=== PATIENT | female | born 1990 | race Caucasian/White ===

== ENCOUNTER → 2017-11-08 11:57 | Outpatient (CLI) | payer BC, SELFPAY ==
[2017-11-08 13:48] LABS: Color, Urine Yellow (Yellow); Glucose, Dipstick Normal (Normal); Ketone-Dipstick Negative (Negative); Leukocyte Esterase-Dipstick Negative /ul (Negative); Nitrite-Dipstick Negative (Negative); Occult Blood-Urine Negative /ul (Negative); Protein-Dipstick Negative (Negative); Urine Bilirubin Dipstick Negative (Negative); Urine Clarity Clear (Clear); Urine Urobilinogen Normal (Normal)
[2017-11-08 13:59] LABS: Absolute Lymphocyte Count 2.25 X10^3/ul (0.83-4.51); Absolute Neutrophil Count 7.9 X10^3/uL (2.0-7.7); Basophil# 0.05 X10^3/uL; Basophil% 0.5 % (0-1); Eosinophil# 0.05 X10^3/uL; Eosinophils% 0.5 % (0-5); Hematocrit 42.8 % (37-47); Hemoglobin 14.6 g/dl (12.0-15.0); Lymphocyte # 2.25 X10^3/ul (4.0); Lymphocyte % 20.8 % (19-41); Mean Corp Hgb Conc 34.1 g/gl (32-36); Mean Corpuscular Hgb 29.8 pg (27.0-32.0); Mean Corpuscular Volume 87.3 fL (81-99); Mean Platelet Vol. 10.7 fl (6.2-12.0); Monocyte# 0.59 X10^3/uL; Monocyte% 5.4 % (0-10); Neutrophil # 7.86 X10^3/uL (2.7-7.7); Neutrophil % 72.5 % (47-70); Platelet Count 435 K/mm3 (150-450); RBC Distribution Width CV 13.4 % (11.6-14.6); RBC Distribution Width SD 42.3 fl (35.1-43.9); White Blood Count 10.8 K/mm3 (4.4-11.0)
[2017-11-08 14:03] LABS: POSITIVE COUNT NO; POSITIVE DIFFERENTIAL NO; POSITIVE MORPHOLOGY NO
[2017-11-08 14:15] LABS: Thyroid Stim Hormone (TSH) 1.56 uIU/mL (0.358-3.74)
[2017-11-08 14:57] LABS: HIV - WCH Non-Reactive (Nonreactive); Rubella IgG 104.7 IU/mL
[2017-11-10 03:56] LABS: Prenatal RPR NONREACTIVE (NONREACTIVE)
[2017-11-10 11:54] LABS: HEPATITIS B SURFACE AG Negative (Negative); Hep C Antibodies <0.1 s/co ratio (0.0-0.9)
== END ==
PROVIDERS: Visit Provider Obstetrics & Gynecology
DX: Z34.81 Encounter for supervision of other normal pregnancy, first trimester (principal); Z3A.00 Weeks of gestation of pregnancy not specified
CPT/HCPCS: 36415; 81002; 84443; 85025; 86703; 86762; 86803; 87340

== ENCOUNTER → 2018-03-26 10:14 | Outpatient (CLI) | payer BC, SELFPAY ==
[2018-03-26 12:08] LABS: Hematocrit 37.2 % (37-47); Hemoglobin 12.4 g/dl (12.0-15.0); Mean Corp Hgb Conc 33.3 g/gl (32-36); Mean Corpuscular Hgb 30.3 pg (27.0-32.0); Mean Platelet Vol. 10.7 fl (6.2-12.0); Platelet Count 226 K/mm3 (150-450); RBC Distribution Width CV 14.3 % (11.6-14.6); RBC Distribution Width SD 46.9 fl (35.1-43.9); Red Blood Count 4.09 M/mm3 (4.2-5.4); White Blood Count 12.2 K/mm3 (4.4-11.0)
[2018-03-26 12:09] LABS: Glucose Challenge Gest 1H 50g 119 mg/dL (70-140)
[2018-03-26 12:10] LABS: Scan Indicated on CBC? Y/N NO
== END ==
PROVIDERS: Visit Provider Obstetrics & Gynecology
DX: Z34.83 Encounter for supervision of other normal pregnancy, third trimester (principal)
CPT/HCPCS: 36415; 82950; 85027

== ENCOUNTER → 2018-05-21 13:47 | Outpatient (CLI) | payer BC, SELFPAY ==
[2018-05-21 17:38] LABS: Group B Strep DNA By PCR Negative (Negative); Internal Control PASS; Specimen Processing Control PASS
[2018-05-21 17:39] LABS: Probe Check PASS
== END ==
PROVIDERS: Visit Provider Obstetrics & Gynecology
DX: Z36.85 Encounter for antenatal screening for Streptococcus B (principal)
CPT/HCPCS: 87081; 87653

== ENCOUNTER 2018-06-05 19:27 | Outpatient (CLI) | payer BC, SELFPAY ==
[2018-06-05 20:03] VITALS: BMI 32.3
--- NOTE | 2018-06-06 06:09 | OB.TRI.NOTE ---
History of Present Illness Date of Service: 06/05/18 Was patient seen by the physician?: No Reason For Visit: R/O LABOR Date of Service: 06/05/18 Final ROD: 06/16/18 Gestational age: 38 Weeks and 3 Days History of Present Illness: 27 yo female. Here for labor check. Also dec FM. Not uncomfortable. BPs 158/84 (states nervous) then 139/87 and 140/85 Allergies No Known Allergies Allergy (Verified 06/05/18 20:03) Physical Exam Cervix Dilation (cm): 0 Station: -3 - posterior NST - FHR Rate Baby A Baseline: 110-120 avg variability Accels Variability:: Moderate Accelerations:: 15 x 15 Decelerations:: None NST Reactive:: Yes, Appropriate for gestational age FHR Category:: Category I Uterine Activity:: UC q 2-6 mins Impression/Plan 38 3/7 wk EGA Reactive NST False labor Borderline BPs Home F/U in ofc for BP check, PIH labs. Discussion prn of induction of labor if indicated by BPs, labs
== END 2018-06-05 20:35 | disposition home or self-care (01) ==
LOC: WPOUT 19:59 → WP 20:02
PROVIDERS: Visit Provider Obstetrics & Gynecology
DX: O47.1 False labor at or after 37 completed weeks of gestation (principal); R03.0 Elevated blood-pressure reading, without diagnosis of hypertension; O36.8130 Decreased fetal movements, third trimester, not applicable or unspecified; Z3A.38 38 weeks gestation of pregnancy
CPT/HCPCS: 59025; 59050; 99218; G0378

== ENCOUNTER → 2018-06-06 13:44 | Outpatient (CLI) | payer BC, SELFPAY ==
[2018-06-06 14:08] LABS: Hematocrit 41.4 % (37-47); Hemoglobin 14.1 g/dl (12.0-15.0); Mean Corp Hgb Conc 34.1 g/gl (32-36); Mean Corpuscular Hgb 30.5 pg (27.0-32.0); Mean Corpuscular Volume 89.6 fL (81-99); Mean Platelet Vol. 10.9 fl (6.2-12.0); Platelet Count 205 K/mm3 (150-450); RBC Distribution Width CV 13.8 % (11.6-14.6); RBC Distribution Width SD 44.6 fl (35.1-43.9); Red Blood Count 4.62 M/mm3 (4.2-5.4); White Blood Count 10.2 K/mm3 (4.4-11.0)
[2018-06-06 14:14] LABS: Scan Indicated on CBC? Y/N NO
[2018-06-06 14:16] LABS: Protein, Urine (Random) < 6.0 mg/dL (<11.9)
[2018-06-06 14:17] LABS: International Normalized Ratio 1.1; Prothrombin Time (Protime)PT. 13.7 SECONDS (11.7-14.9)
[2018-06-06 14:18] LABS: Partial Thromboplast Time 25.9 Seconds (24.1-36.2)
[2018-06-06 14:36] LABS: AST(SGOT) 19 U/L (15-37); Alanine Aminotransfer ALT/SGPT 23 U/L (13-56); Creatinine, Serum 0.48 mg/dL (0.55-1.02); EST Glomerular Filtration Rate 166 mL/min (>60); Est Glom Filt Rate - Afr Amer 200 mL/min (>60); Uric Acid 3.4 mg/dL (2.6-6.0)
== END ==
PROVIDERS: Visit Provider Obstetrics & Gynecology
DX: O13.3 Gestational [pregnancy-induced] hypertension without significant proteinuria, third trimester (principal); Z3A.00 Weeks of gestation of pregnancy not specified
CPT/HCPCS: 36415; 82565; 82570; 84156; 84450; 84460; 84550; 85027; 85610; 85730

== ENCOUNTER 2018-06-21 01:55 | Inpatient (IN) | payer BC, SELFPAY ==
[2018-06-21 01:29] VITALS: BMI 32.8
[2018-06-21 01:50] LABS: ROM Internal Control Test YES-OK TO RESULT pt. (Internal QC)
[2018-06-21 01:51] LABS: ROM Patient Test POSITIVE (Negative)
[2018-06-21] MEDS: Lactated Ringers 1,000 ML 50 ML IV ×3 (02:15→10:12)
[2018-06-21 02:27] LABS: Hematocrit 41.9 % (37-47); Hemoglobin 14.2 g/dl (12.0-15.0); Mean Corp Hgb Conc 33.9 g/gl (32-36); Mean Corpuscular Hgb 30.3 pg (27.0-32.0); Mean Corpuscular Volume 89.3 fL (81-99); Mean Platelet Vol. 10.9 fl (6.2-12.0); Platelet Count 191 K/mm3 (150-450); RBC Distribution Width CV 13.7 % (11.6-14.6); RBC Distribution Width SD 44.4 fl (35.1-43.9); Red Blood Count 4.69 M/mm3 (4.2-5.4); Scan Indicated on CBC? Y/N NO; White Blood Count 11.3 K/mm3 (4.4-11.0)
[2018-06-21] MEDS: Nalbuphine 10 MG/ML Ampul IV (04:21)
[2018-06-21] MEDS: 0.9% Saline Lock 10 ML Syringe IV ×2 (04:23→07:46)
[2018-06-21] MEDS: fentaNYL-bupivacaine (epidural) 100 ML BAG EPIDURAL (06:58)
[2018-06-21] MEDS: Ondansetron 4 MG/2 ML Vial IV (07:44)
--- NOTE | 2018-06-21 08:06 | PCM.PN.BLA ---
Progress Note LABOR PROGRESS NOTE Comfortable but feeling a lot more pressue. No longer with N/V. AVSS No pitocin EFM 120-130s avg variability. Category I tracing. UCs appear inadequate by mVUs Complete and 0 - + 1 A/P: 40 5/7 wk EGA. SROM. Labor. Position changes to facilitate rotation and descent. Begin pushing prn.
[2018-06-21] MEDS: Oxytocin 30 units/NS 500 ml 30 UNITS/500 ML IV.SOLN 334 UNITS IV (10:43)
[2018-06-21] MEDS: Oxytocin 30 units/NS 500 ml 30 UNITS/500 ML IV.SOLN 167 UNITS IV (11:13)
--- NOTE | 2018-06-21 11:40 | PCM.OB.VAG ---
Vaginal Delivery Maternal Presentation: Active Labor, Spontaneous Rupture of Membranes 40 3/7 wk EGA SROM , labor Amniotic Membrane Rupture Type: Spontaneous at home Amniotic Fluid Description: Clear - meconium staining in labor. Peds present for delivery. Final ROD: 06/18/18 Gestational age: 40 Weeks and 3 Days doctor who attended delivery (if requested by OB): Penny Araujo Date of Procedure: 06/21/18 Pre-Operative Diagnosis: 40 3/7 wk labor ,SROM Post-Operative Diagnosis: Same Surgery/ Procedure Performed: Spontaneous Vaginal Delivery Anesthesiologist: Ken Shaikh Type of Anesthesia: Epidural Description of Procedure: of a pelayo female over intact perineum. Meconium stained fluid noted. Head delivered TONA. No nuchal cord. OP and nares bulb suctioned on perineum. L arm delivered spontaneously, hand at chin and R arm/shoulder then easily delivered. Spontaneous cry, vigorous infant to maternal abdomen. Dr. Sibley attending delivery 2/2 meconium stained fluid. Routine cord gases and cord blood for typing collected. PP exam; vaginal laceration, 1st deg, posterior introitus, hemostatic and no repair required. No other lacerations. Incidentally, blood noted in bethea after delivery. Placenta delivered by spont expulsion, expression 3V normal appearing and intact with trailing membranes. Pt and infant tolerated delivery well. To recovery, stable condition Wt pending. Ap 9/9 Presentation: Vertex, TONA Placental Delivery Description: Spontaneous, Expressed Placenta Disposition: [facility] Cord Gases drawn per routine: ABG, VBG Cord Entanglement: None Estimated Blood Loss: 300 Infant A gender: Female (1 minute): 9 (5 minute): 9 Episiotomy Description: None Laceration: Midline, Vaginal Extension/lac - NO repair required, hemostatic., 1st degree Medications given after delivery: IV Pitocin Complications: None
--- NOTE | 2018-06-21 11:49 | PCM.DCVAG ---
Discharge Diet: No Restrictions Discharge Activity: May Shower, May Take a Tub Bath May resume sexual activity in: 4-6 weeks Additional Activity Instructions:: Nothing in the vagina for 4-6 weeks. You may return to work/school in 6 weeks. Additional Instructions: If you experience any of the following, contact your healthcare provider. Bleeding that soaks a pad every hour for 2 hours Fever 100.4 or higher Unrelieved abdominal pain Problems urinating (including inability to urinate or burning while urinating). Visual changes Severe headache Flu-like symptoms Pain or redness in one of both of your breasts Pain, warmth, tenderness or swelling in your legs, especially the calf area Frequent nausea and vomiting Symptoms of depression or anxiety If you experience any of the following, call 911 or go to the nearest Emergency Room. Chest pain Problems breathing Seizure activity Partial or complete paralysis of a body part, slurred speech, weakness or drooping of the face, or a sudden inability to walk or hold your balance Allergies/Adverse Reactions: Allergies No Known Allergies Allergy (Verified 06/05/18 20:03) Medications to take at Discharge Vit Calc,Iron,Folic [ Vitamins] 1 tab PO DAILY 06/05/18 Please Follow Up With: January Monroy MD - [phone] When: Call to make an appointment with your doctor in 6 weeks. Primary Care Physician: Care Physician,No Primary [Primary Care Provider] - Test Results: Test results from this visit will be discussed in further detail at your follow-up appointment, if applicable.
--- NOTE | 2018-06-21 11:51 | DCINST_ITS ---
Discharge Diet: No Restrictions Discharge Activity: May Shower, May Take a Tub Bath May resume sexual activity in: 4-6 weeks Additional Activity Instructions:: Nothing in the vagina for 4-6 weeks. You may return to work/school in 6 weeks. Additional Instructions: If you experience any of the following, contact your healthcare provider. * Bleeding that soaks a pad every hour for 2 hours * Fever 100.4 or higher * Unrelieved abdominal pain * Problems urinating (including inability to urinate or burning while urinating) . * Visual changes * Severe headache * Flu-like symptoms * Pain or redness in one of both of your breasts * Pain, warmth, tenderness or swelling in your legs, especially the calf area * Frequent nausea and vomiting * Symptoms of depression or anxiety If you experience any of the following, call 911 or go to the nearest Emergency Room. * Chest pain * Problems breathing * Seizure activity * Partial or complete paralysis of a body part, slurred speech, weakness or drooping of the face, or a sudden inability to walk or hold your balance Allergies/Adverse Reactions: Allergies No Known Allergies Allergy (Verified 06/05/18 20:03) Medications to take at Discharge Vit Calc,Iron,Folic [ Vitamins] 1 tab PO DAILY 06/05/18 Please Follow Up With: January Monroy MD - [phone] When: Call to make an appointment with your doctor in 6 weeks. Primary Care Physician: Care Physician,No Primary [Primary Care Provider] - Test Results: Test results from this visit will be discussed in further detail at your follow- up appointment, if applicable.
[2018-06-21 16:00] VITALS: BP 124/81; PULSE 100; RESP 18; TEMP 36.6
--- NOTE | 2018-06-21 16:21 | NURSING ---
1600 bethea cath dc'ed; pt oob up to chair; bed changed
[2018-06-21] MEDS: Naproxen 250 MG Tablet PO (17:13)
[2018-06-21 17:15] VITALS: BP 138/84; PULSE 90; RESP 24; O2SAT 97
[2018-06-21 18:40] VITALS: TEMP 36.4
[2018-06-21 20:20] VITALS: BP 124/74; PULSE 85; RESP 16; TEMP 36.6; O2SAT 95
[2018-06-22] VITALS: BP 125/77; PULSE 78; RESP 16; TEMP 36.4
[2018-06-22 04:35] VITALS: BP 115/59; PULSE 82; RESP 16; TEMP 35.9; O2SAT 98
[2018-06-22] MEDS: Naproxen 250 MG Tablet PO ×2 (04:43→13:22)
[2018-06-22 08:03] VITALS: BP 115/63; PULSE 84; RESP 16; TEMP 36.6; O2SAT 99
--- NOTE | 2018-06-22 08:16 | PCM.PN.OB ---
Subjective: PPD#1 Doing well. Breast feeding. No concerns. Minimal pain. - Physical Exam General: Alert, Oriented x3, Cooperative, No apparent distress HEENT: Atraumatic Neck: Supple Abdomen: Soft - Fundus firm NT at umbilicus Neurological: Cranial nerves II-XII grossly intact Psych/Mental Status: Normal Affect Vital Signs Temp Pulse Resp BP Pulse Ox 97.9 F 84 16 115/63 99 06/22/18 08:03 06/22/18 08:03 06/22/18 08:03 06/22/18 08:03 06/22/18 08:03 Oxygen Delivery Method Room Air Weight: 106.912 kg Body Mass Index (BMI) 32.8 Intake and Output for Last 24 Hours 06/20/18 06/21/18 06/22/18 23:59 23:59 23:59 Intake Total 4586 / 4586 Output Total 2800 / 2800 Balance 1786 / 1786 Medical Necessity - Tobacco Use Smoking Status: Never smoker Assessment/Plan PPD#1 Stable pp. Continue care.
[2018-06-22] MEDS: Prenatal Vits Tablet 1 TABLET PO (13:22)
[2018-06-22 13:26] VITALS: BP 121/60; PULSE 83; RESP 16; TEMP 36.6; O2SAT 99
[2018-06-22 20:30] VITALS: BP 116/90; PULSE 90; RESP 16; TEMP 36.4; O2SAT 96
[2018-06-23] MEDS: Naproxen 250 MG Tablet PO (02:23)
[2018-06-23] MEDS: Senna/Docusate Sodium 1 Tablet PO (02:24)
[2018-06-23 02:32] VITALS: BP 127/77; PULSE 89; RESP 16; TEMP 36.4; O2SAT 93
[2018-06-23] MEDS: Acetaminophen 500 MG Tablet 1000 MG PO (08:27)
--- NOTE | 2018-06-23 09:50 | PCM.PN.OB ---
Subjective: Patient without complaints. Ready to go home. - Physical Exam Vital Signs Temp Pulse Resp BP Pulse Ox 97.5 F L 89 16 127/77 H 93 06/23/18 02:32 06/23/18 02:32 06/23/18 02:32 06/23/18 02:32 06/23/18 02:32 Oxygen Delivery Method Room Air Weight: 235 lb 11.2 oz Body Mass Index (BMI) 32.8 Intake and Output for Last 24 Hours 06/21/18 06/22/18 06/23/18 23:59 23:59 23:59 Intake Total 4586 / 4586 Output Total 2800 / 2800 Balance 1786 / 1786 Medical Necessity - Tobacco Use Smoking Status: Never smoker Assessment/Plan Doing well day #2. Will release to home with routine instructions given.
[2018-06-23 09:51] VITALS: BP 128/82; PULSE 89; RESP 16; TEMP 36.5; O2SAT 95
== END 2018-06-23 10:19 | disposition home or self-care (01) | DRG 775 ==
LOC: WP 10:44 → WPOUT 06-22 08:29
PROVIDERS: Obstetrics & Gynecology; Admitting Provider Obstetrics & Gynecology; Visit Provider Obstetrics & Gynecology
DX: O77.0 Labor and delivery complicated by meconium in amniotic fluid (principal); J45.909 Unspecified asthma, uncomplicated; Z3A.40 40 weeks gestation of pregnancy; Z37.0 Single live birth
CPT/HCPCS: 59025; 59050; 84112; 85027; 86850; 86900; 99218; J7120; A4216; G0378; J2405

== ENCOUNTER 2018-06-26 10:20 | Outpatient (CLI) | payer BC, SELFPAY | END 2018-06-26 11:06 | disposition home or self-care (01) | LOC: WPOUT 11:04 → WP 11:05 | PROVIDERS: Visit Provider Obstetrics & Gynecology | DX: Z39.1 Encounter for care and examination of lactating mother (principal) | CPT/HCPCS: 96152 ==

== ENCOUNTER → 2018-06-27 13:53 | Outpatient (CLI) | payer BC, SELFPAY | PROVIDERS: Visit Provider Obstetrics & Gynecology | DX: R30.0 Dysuria (principal); R39.11 Hesitancy of micturition | CPT/HCPCS: 87086; 87088 ==

== ENCOUNTER → 2019-04-17 11:36 | Outpatient (CLI) | payer BC, SELFPAY ==
[2019-04-17 20:13] LABS: Chlamydia Trachomatis by PCR Negative (Negative); Neisserai gonorrhoeae by PCR Negative (Negative); Probe Check PASS; Sample Adequacy Control PASS; Specimen Processing Control PASS
== END ==
PROVIDERS: Visit Provider Obstetrics & Gynecology
DX: Z34.81 Encounter for supervision of other normal pregnancy, first trimester (principal); Z11.3 Encounter for screening for infections with a predominantly sexual mode of transmission
CPT/HCPCS: 87491; 87591

== ENCOUNTER → 2019-05-13 16:07 | Outpatient (CLI) | payer BC, SELFPAY ==
[2019-05-13 17:51] LABS: Absolute Lymphocyte Count 2.24 X10^3/uL (0.83-4.51); Absolute Neutrophil Count 7.2 X10^3/uL (2.0-7.7); Basophil# 0.03 X10^3/uL; Basophil% 0.3 % (0-1); Eosinophil# 0.07 X10^3/uL; Eosinophils% 0.7 % (0-5); Hematocrit 41.7 % (37-47); Hemoglobin 14.1 g/dL (12.0-15.0); Lymphocyte # 2.24 X10^3/ul (4.0); Lymphocyte % 22.4 % (19-41); Mean Corp Hgb Conc 33.8 g/dL (32-36); Mean Corpuscular Hgb 29.9 pg (27.0-32.0); Mean Corpuscular Volume 88.5 fL (81-99); Mean Platelet Vol. 10.2 fl (6.2-12.0); Monocyte# 0.41 X10^3/uL; Monocyte% 4.1 % (0-10); NRBC Flagged by Analyzer 0 % (0-5); Neutrophil # 7.21 X10^3/uL (2.7-7.7); Neutrophil % 72.2 % (47-70); Platelet Count 366 K/mm3 (150-450); RBC Distribution Width CV 12.2 % (11.6-14.6); RBC Distribution Width SD 39.8 fl (35.1-43.9); Red Blood Count 4.71 M/mm3 (4.2-5.4)
[2019-05-13 18:03] LABS: Amphetamine Urine VISTA NEGATIVE (<1000 ng/mL); Barbiturate Urine VISTA NEGATIVE (< 200 ng/mL); Benzodiazepine Urine VISTA NEGATIVE (< 200 ng/mL); Cocaine Urine VISTA NEGATIVE (< 300 ng/mL); Ecstacy Urine VISTA NEGATIVE (< 500 ng/mL); Methadone Urine VISTA NEGATIVE (< 300 ng/mL); PCP Urine VISTA NEGATIVE (< 25 ng/mL); THC Urine VISTA NEGATIVE (< 50 ng/mL); Vista UDS pH Range 6
[2019-05-13 18:13] LABS: Color, Urine Yellow (Yellow); Glucose, Dipstick Normal (Normal); Ketone-Dipstick Negative (Negative); Leukocyte Esterase-Dipstick 100 /ul (Negative); Nitrite-Dipstick Negative (Negative); Occult Blood-Urine 10 /ul (Negative); Protein-Dipstick 15 mg/dl (Negative); Specific Gravity, Urine 1.015 (1.002-1.030); Urine Bilirubin Dipstick Negative (Negative); Urine Clarity Sl. Cloudy (Clear); Urine Urobilinogen Normal (Normal)
[2019-05-13 18:19] LABS: Thyroid Stim Hormone (TSH) 1.14 uIU/mL (0.358-3.74)
[2019-05-14 09:43] LABS: HIV - WCH Non-Reactive (Nonreactive); Hepatitis B Surface Antigen Non-Reactive (Nonreactive); Hepatitis C Antibody Non-Reactive (Nonreactive); Rubella IgG 123.4 IU/mL
[2019-05-17 04:45] LABS: Prenatal RPR NONREACTIVE (NONREACTIVE)
== END ==
PROVIDERS: Visit Provider Obstetrics & Gynecology
DX: Z34.81 Encounter for supervision of other normal pregnancy, first trimester (principal)
CPT/HCPCS: 36415; 80307; 81002; 84443; 85025; 86703; 86762; 86803; 87340

== ENCOUNTER → 2019-09-02 10:03 | Outpatient (CLI) | payer BC, SELFPAY ==
[2019-09-02 10:39] LABS: Hematocrit 39.5 % (37-47); Hemoglobin 13.4 g/dL (12.0-15.0); Mean Corp Hgb Conc 33.9 g/dL (32-36); Mean Corpuscular Hgb 30.5 pg (27.0-32.0); Mean Corpuscular Volume 89.8 fL (81-99); Mean Platelet Vol. 10.6 fl (6.2-12.0); Platelet Count 247 K/mm3 (150-450); RBC Distribution Width CV 13.6 % (11.6-14.6); RBC Distribution Width SD 44.7 fl (35.1-43.9); White Blood Count 12.1 K/mm3 (4.4-11.0)
[2019-09-02 11:14] LABS: Glucose Challenge Gest 1H 50g 114 mg/dL (70-140)
== END ==
PROVIDERS: Visit Provider Obstetrics & Gynecology
DX: Z34.83 Encounter for supervision of other normal pregnancy, third trimester (principal)
CPT/HCPCS: 36415; 82950; 85027

== ENCOUNTER → 2019-10-30 11:05 | Outpatient (CLI) | payer BC, SELFPAY | PROVIDERS: Visit Provider Advanced Practice Midwife | DX: Z36.85 Encounter for antenatal screening for Streptococcus B (principal) | CPT/HCPCS: 87081 ==

== ENCOUNTER 2019-11-26 13:05 | Inpatient (IN) | payer BC, SELFPAY ==
[2019-11-26 12:40] VITALS: BMI 31.3
[2019-11-26] MEDS: Lactated Ringers 1,000 ML 50 ML IV (12:45)
[2019-11-26 13:01] LABS: ROM Internal Control Test YES-OK TO RESULT pt. (Internal QC)
[2019-11-26 13:02] LABS: ROM Patient Test POSITIVE (Negative)
[2019-11-26] MEDS: Lactated Ringers 500 ML 999 ML IV (13:55)
--- NOTE | 2019-11-26 14:00 | PCM.HP.OB ---
- Problem List (1) 40 weeks gestation of Status: Acute History Date of Admission: 11/26/19 Final ROD: 11/24/19 Final ROD Source: [place] <20 weeks Gestational age: 40 Weeks and 2 Days History of this : This is a 28 year-old, G [], P [], at 40 weeks gestational age. Medical History: Medical History (Last Updated 11/27/19 @ 01:06 by Katy Najera MD) Asthma J45.909 Allergies No Known Allergies Allergy (Verified 11/26/19 14:12) Home Medications: Home Medications Vit Calc,Iron,Folic [ Vitamins] 1 tab PO DAILY 06/05/18 Smoking Status: Never smoker Alcohol: None Number of Fetus(es): 1 NST - FHR Rate Baby A Baseline: 130 Variability:: Moderate Accelerations:: 15 x 15 Decelerations:: None NST Reactive:: Yes FHR Category:: Category I Uterine Activity:: 3/10 History Past Pregnancies: Past Pregnancies Delivery Date GA/ Weeks Outcome Route Wt Infant Sex Labor Length Anesthesia Delivery Location FOB 06/2018 40 Living 8lb5oz F 9 Epidural [facility] Labs: Mom's Problem List Problem Status Onset Code 40 weeks gestation of Acute Z3A.40 Mom's Labs & Results 11/26/19 11/26/19 11/26/19 12:45 13:30 13:30 WBC 11.1 H RBC 4.87 Hgb 14.4 Hct 42.4 MCV 87.1 MCH 29.6 MCHC 34.0 RDW Std Deviation 40.3 RDW Coeff of Margot 12.8 Plt Count 210 MPV 11.1 Immature Gran % (Auto) 1.000 H Neut % (Auto) 71.6 H Lymph % (Auto) 22.8 Clare % (Auto) 3.9 Eos % (Auto) 0.3 Baso % (Auto) 0.4 Absolute Neuts (auto) 8.0 H Absolute Lymphs (auto) 2.54 Nucleated RBC % 0 Vag Amniotic Fld Detect POSITIVE H Blood Type O POSITIVE Antibody Screen NEGATIVE Course Did the patient receive Yes care? Labs Blood Type: O RH: POSITIVE RPR/VDRL/Syphilis Nonreactive Rubella status Immune HbSAg Negative Date Done: 05/13/19 Chlamydia Negative Gonorrhea Negative HIV/AIDS Non-Reactive Group B Strep: Negative Current Obstetrical History Gestational Diabetes No Incompetent Cervix No Infertility No IUGR No Macrosomia No Hypertension/Pre-eclampsia No Placenta Previa/Abruption No PTL/PROM No Uterine anomaly No Oligohydramnios Yes: reports low fluid for a little bit, not at delivery Polyhydramnios No Multiple gestation No Past Medical History Asthma Yes: inhaler prn Diabetes No Hypertension No Heart disease No Mitral valve prolapse No Neurologic/Seizure disorder/ No Migraines Kidney disease No Liver disease No Varicosities No Clotting disorders/Hx of DVT No Thyroid Dysfunction No Other medical diseases No Psychiatric disorders No Major trauma No Abnormal PAP smear No Sleep apnea No Mammogram in the last 2 years No Social History Marital Status: Alleged father William Caldwell Hx Smoking No Smoking Status Never smoker Expected Delivery Method: Spontaneous Vaginal Number of Visits: 12 Physical Exam Vitals: Vital Signs Temp Pulse Resp BP 98.6 F 82 18 128/74 H 11/26/19 23:25 11/26/19 23:25 11/26/19 23:25 11/26/19 23:25 General: Alert, Oriented x3, Cooperative, No apparent distress HEENT: Atraumatic, Normocephalic Cardiovascular: Regular Rhythm Lungs: Normal air movement Abdomen: Soft, Non Tender, Non-Distended, Gravid Neurological: Neuro grossly intact Estimated gestational size: Appropriate for gestational size Cervix Dilation (cm): 8 Assessment/Plan All Active Problems 40 weeks gestation of (Acute) This is a 28 year-old, G [2], P [1], at 40 2/7 weeks gestational age in labor with SROM. -Anticipate
[2019-11-26 14:07] LABS: Absolute Lymphocyte Count 2.54 X10^3/uL (0.83-4.51); Basophil# 0.05 X10^3/uL; Basophil% 0.4 % (0-1); Eosinophil# 0.03 X10^3/uL; Eosinophils% 0.3 % (0-5); Hematocrit 42.4 % (37-47); Hemoglobin 14.4 g/dL (12.0-15.0); Lymphocyte # 2.54 X10^3/ul (4.0); Lymphocyte % 22.8 % (19-41); Mean Corpuscular Hgb 29.6 pg (27.0-32.0); Mean Corpuscular Volume 87.1 fL (81-99); Mean Platelet Vol. 11.1 fl (6.2-12.0); Monocyte# 0.43 X10^3/uL; Monocyte% 3.9 % (0-10); NRBC Flagged by Analyzer 0 % (0-5); Neutrophil # 7.97 X10^3/uL (2.7-7.7); Neutrophil % 71.6 % (47-70); Platelet Count 210 K/mm3 (150-450); RBC Distribution Width CV 12.8 % (11.6-14.6); RBC Distribution Width SD 40.3 fl (35.1-43.9); Red Blood Count 4.87 M/mm3 (4.2-5.4); White Blood Count 11.1 K/mm3 (4.4-11.0)
[2019-11-26] MEDS: Oxytocin 30 units/NS 500 ml 30 UNITS/500 ML IV.SOLN 334 UNITS IV (15:34)
--- NOTE | 2019-11-26 16:44 | PCM.OPRPT ---
Problem List (1) 40 weeks gestation of Status: Acute Vaginal Delivery Maternal Presentation: Spontaneous Rupture of Membranes Amniotic Membrane Rupture Type: Spontaneous at home Rupture of Membrane time: 0900 11/26/19 Amniotic Fluid Description: Clear Final ROD: 11/24/19 Gestational age: 40 Weeks and 2 Days Date of Procedure: 11/26/19 Pre-Operative Diagnosis: 40 2/7wga Post-Operative Diagnosis: 40 2/7wga Surgery/ Procedure Performed: Spontaneous Vaginal Delivery Type of Anesthesia: Epidural Description of Procedure: Patient FD/+ 4 station on my arrival with spontaneous descent for head to +5 station. Nuchal cord x 1 was reduced. The anterior then posterior shoulders delivered with maternal expulsive effort to reveal a vigorous male . The infant was placed on the maternal abdomen and further attended by nursery personnel. The cord was doubly clamped and cut. Cord blood was obtained. The placenta delivered spontaneously and appeared intact on inspection. The perineum was intact. Sponge counts were correct x 2. 4015g Presentation: Vertex Placenta Disposition: [facility] Cord Vessel Description: 3 Vessels Nuchal Cord Compression: Without compression Cord Entanglement: None, Around neck x 1, loose Estimated Blood Loss: 250 ml A gender: Male (1 minute): 8 (5 minute): 9 Episiotomy Description: None Laceration: None Medications given after delivery: IV Pitocin Complications: None
[2019-11-26] MEDS: 0.9% Saline Lock 10 ML Syringe IV (18:08)
[2019-11-26 23:25] VITALS: BP 128/74; PULSE 82; RESP 18; TEMP 37
[2019-11-26] MEDS: Acetaminophen 500 MG Tablet 1000 MG PO (23:25)
[2019-11-27 03:37] VITALS: BP 111/69; PULSE 80; RESP 14; TEMP 36.7
[2019-11-27] MEDS: Ibuprofen 600 MG Tablet PO ×2 (03:43→12:58)
--- NOTE | 2019-11-27 07:12 | PCM.PN.OB ---
Patient Problems: Active and Suspected Problems (Last Updated 11/27/19 @ 01:06 by Katy Najera MD) 40 weeks gestation of (Acute) Subjective: No issues overnight. Infant nursing well. OOB, no voiding difficulties, denies heavy lochia. Objective: avss - Physical Exam Vitals/I&O's: Vital Signs Temp Pulse Resp BP 98.1 F 80 14 111/69 11/27/19 03:37 11/27/19 03:37 11/27/19 03:37 11/27/19 03:37 Oxygen Delivery Method Room Air Weight: 101.8 kg Body Mass Index (BMI) 31.3 Intake and Output for Last 24 Hours 11/25/19 11/26/19 11/27/19 23:59 23:59 23:59 Intake Total 1137.5 / 1137.5 Output Total 1050 / 1050 Balance 87.5 / 87.5 General: Alert, Oriented x3, Cooperative, No apparent distress HEENT: Atraumatic, Normocephalic Lungs: Clear to auscultation, Normal air movement Cardiovascular: Regular rate, Regular Rhythm, Normal S1, Normal S2 Abdomen: Soft, Non Tender, Non-Distended, - - fundus firm and nontender Extremities: No edema, No Calf Tenderness Neurological: Neuro grossly intact Psych/Mental Status: Normal Affect, Appropriate, Alert and oriented to time, place, person, mood and affect Laboratory Results 11/26/19 12:45: Vag Amniotic Fld Detect POSITIVE H 11/26/19 13:30: WBC 11.1 H, RBC 4.87, Hgb 14.4, Hct 42.4, MCV 87.1, MCH 29.6, MCHC 34.0, RDW Std Deviation 40.3, RDW Coeff of Margot 12.8, Plt Count 210, MPV 11.1, Immature Gran % (Auto) 1.000 H, Neut % (Auto) 71.6 H, Lymph % (Auto) 22.8, Moffat % (Auto) 3.9, Eos % (Auto) 0.3, Baso % (Auto) 0.4, Absolute Neuts (auto) 8.0 H, Absolute Lymphs (auto) 2.54, Nucleated RBC % 0 11/26/19 13:30: Blood Type O POSITIVE, Antibody Screen NEGATIVE Current Medications Acetaminophen (Tylenol) 1,000 mg PO Q8H PRN PRN PRN Reason: Pain Score 1-3/10 Last Admin: 11/26/19 23:25 Dose: 1,000 mg Documented by: Bisacodyl (Dulcolax) 10 mg RECTAL UD PRN PRN Reason: If no BM Dibucaine (Dibucaine) 1 applic TOPICAL TID PRN PRN; Protocol PRN Reason: Discomfort Hydrocortisone (Hytone) 1 applic TOPICAL TID PRN PRN; Protocol PRN Reason: Discomfort Ibuprofen (Motrin) 600 mg PO Q6H PRN PRN PRN Reason: Pain Score 1-310 Last Admin: 11/27/19 03:43 Dose: 600 mg Documented by: Methylergonovine Maleate (Methergine) 0.2 mg IM X1 PRN PRN Reason: Excess bleeding/uterine atony Ondansetron HCl (Zofran) 4 mg IV Q4H PRN PRN PRN Reason: Nausea Senna/Docusate Sodium (Senokot-S, Mary-Colace) 1 - 2 tablet PO DAILY PRN PRN PRN Reason: Constipation Simethicone (Mylicon) 80 mg PO PCHS PRN PRN Reason: Indigestion/Stomach pain Sodium Chloride () 5 - 15 ml IV UD PRN PRN Reason: SALINE FLUSH Last Admin: 11/26/19 18:08 Dose: 10 ml Documented by: Medical Necessity - Tobacco Use Smoking Status: Never smoker Assessment/Plan All Active Problems (Last Updated 11/27/19 @ 01:06 by Katy Najera MD) 40 weeks gestation of (Acute) This is a 28 year-old, G [2], P [2001 PPD#1 s/p doing well. -Rh positive - -Routine care - for circ, will d/c home this afternoon if infant also cleared for discharge
--- NOTE | 2019-11-27 07:14 | DCINST_ITS ---
Discharge Diet: No Restrictions Discharge Activity: Return to Normal Activity May resume sexual activity in: 4-6 weeks Additional Instructions: If you experience any of the following, contact your healthcare provider. * Bleeding that soaks a pad every hour for 2 hours * Fever 100.4 or higher * Unrelieved incision or abdominal pain * Swelling, redness, discharge or bleeding from your incision or episiotomy site * Your incision begins to separate * Problems urinating (including inability to urinate or burning while urinating). * Visual changes * Severe headache * Flu-like symptoms * Pain or redness in one of both of your breasts * Pain, warmth, tenderness or swelling in your legs, especially the calf area * Frequent nausea and vomiting * Symptoms of depression or anxiety If you experience any of the following, call 911 or go to the nearest Emergency Room. * Chest pain * Problems breathing * Seizure activity * Partial or complete paralysis of a body part, slurred speech, weakness or drooping of the face, or a sudden inability to walk or hold your balance Allergies/Adverse Reactions: Allergies No Known Allergies Allergy (Verified 11/26/19 14:12) Medications to take at Discharge Vit Calc,Iron,Folic [ Vitamins] 1 tab PO DAILY 06/05/18 Please Follow Up With: Katy Najera MD When: 2 weeks Primary Care Physician: Care Physician,No Primary [Primary Care Provider] - Test Results: Test results from this visit will be discussed in further detail at your follow- up appointment, if applicable.
--- NOTE | 2019-11-27 07:14 | PCM.DCVAG ---
Discharge Diet: No Restrictions Discharge Activity: Return to Normal Activity May resume sexual activity in: 4-6 weeks Additional Instructions: If you experience any of the following, contact your healthcare provider. Bleeding that soaks a pad every hour for 2 hours Fever 100.4 or higher Unrelieved incision or abdominal pain Swelling, redness, discharge or bleeding from your incision or episiotomy site Your incision begins to separate Problems urinating (including inability to urinate or burning while urinating). Visual changes Severe headache Flu-like symptoms Pain or redness in one of both of your breasts Pain, warmth, tenderness or swelling in your legs, especially the calf area Frequent nausea and vomiting Symptoms of depression or anxiety If you experience any of the following, call 911 or go to the nearest Emergency Room. Chest pain Problems breathing Seizure activity Partial or complete paralysis of a body part, slurred speech, weakness or drooping of the face, or a sudden inability to walk or hold your balance Allergies/Adverse Reactions: Allergies No Known Allergies Allergy (Verified 11/26/19 14:12) Medications to take at Discharge Vit Calc,Iron,Folic [ Vitamins] 1 tab PO DAILY 06/05/18 Please Follow Up With: Katy Najera MD When: 2 weeks Primary Care Physician: Care Physician,No Primary [Primary Care Provider] - Test Results: Test results from this visit will be discussed in further detail at your follow-up appointment, if applicable.
[2019-11-27 08:41] VITALS: BP 114/75; PULSE 80; RESP 16; TEMP 36.3; O2SAT 99
[2019-11-27] MEDS: Acetaminophen 500 MG Tablet 1000 MG PO ×2 (08:46→19:25)
[2019-11-27] MEDS: Senna/Docusate Sodium 1 Tablet PO (08:46)
[2019-11-27 12:01] VITALS: BP 111/70; PULSE 77; RESP 16; TEMP 36.8; O2SAT 99
[2019-11-27 16:23] VITALS: BP 138/83; PULSE 77; RESP 16; TEMP 36.6; O2SAT 99
[2019-11-27 19:57] VITALS: BP 120/84; PULSE 84; RESP 14; TEMP 36.6
[2019-11-28] MEDS: Ibuprofen 600 MG Tablet PO (01:37)
[2019-11-28 01:41] VITALS: BP 127/85; PULSE 70; RESP 14; TEMP 37.1
[2019-11-28] MEDS: Acetaminophen 500 MG Tablet 1000 MG PO (07:25)
--- NOTE | 2019-11-28 08:21 | PN.OBGYN_ITS ---
Patient Problems: Active and Suspected Problems (Last Updated 11/27/19 @ 01:06 by Katy Salinas MD) (spontaneous vaginal delivery) (Acute) 40 weeks gestation of (Acute) Subjective: Feeling well. is going good with no concerns. Denies heavy lochia. Reports passing flatus. ready to go home Objective: VSS. Fundus firm, midline, u/1. Moderate lochia rubra. - Physical Exam Vitals/I&O's: Vital Signs Temp Pulse Resp BP Pulse Ox 98.7 F 70 14 127/85 H 99 11/28/19 01:41 11/28/19 01:41 11/28/19 01:41 11/28/19 01:41 11/27/19 16:23 Oxygen Delivery Method Room Air Weight: 101.8 kg Body Mass Index (BMI) 31.3 Intake and Output for Last 24 Hours 11/26/19 11/27/19 11/28/19 23:59 23:59 23:59 Intake Total 1137.5 / 1137.5 Output Total 1050 / 1050 Balance 87.5 / 87.5 General: Alert, Oriented x3, Cooperative HEENT: Atraumatic, PERRLA, EOMI, Normocephalic Neck: Supple, No JVD, Negative Carotid Bruits Lungs: Clear to auscultation, Normal air movement Cardiovascular: Regular rate, No murmurs Abdomen: Bowel Sounds Present, Soft, Non Tender, Passing Flatus Extremities: No edema, Capillary Refill Less than 3 Seconds Skin: No rashes, No breakdown Musculoskeletal: No Tenderness to Palpation of Joints or Extremities Neurological: Cranial nerves II-XII grossly intact Psych/Mental Status: Normal Affect, Appropriate Current Medications Acetaminophen (Tylenol) 1,000 mg PO Q8H PRN PRN PRN Reason: Pain Score 1-3/10 Last Admin: 11/28/19 07:25 Dose: 1,000 mg Documented by: Bisacodyl (Dulcolax) 10 mg RECTAL UD PRN PRN Reason: If no BM Dibucaine (Dibucaine) 1 applic TOPICAL TID PRN PRN; Protocol PRN Reason: Discomfort Hydrocortisone (Hytone) 1 applic TOPICAL TID PRN PRN; Protocol PRN Reason: Discomfort Ibuprofen (Motrin) 600 mg PO Q6H PRN PRN PRN Reason: Pain Score 1-3/10 Last Admin: 11/28/19 01:37 Dose: 600 mg Documented by: Methylergonovine Maleate (Methergine) 0.2 mg IM X1 PRN PRN Reason: Excess bleeding/uterine atony Ondansetron HCl (Zofran) 4 mg IV Q4H PRN PRN PRN Reason: Nausea Senna/Docusate Sodium (Senokot-S, Mary-Colace) 1 - 2 tablet PO DAILY PRN PRN PRN Reason: Constipation Last Admin: 11/27/19 08:46 Dose: 1 tablet Documented by: Simethicone (Mylicon) 80 mg PO PCHS PRN PRN Reason: Indigestion/Stomach pain Sodium Chloride () 5 - 15 ml IV UD PRN PRN Reason: SALINE FLUSH Last Admin: 11/26/19 18:08 Dose: 10 ml Documented by: Medical Necessity - Tobacco Use Smoking Status: Never smoker Assessment/Plan All Active Problems (Last Updated 11/27/19 @ 01:06 by Katy Najera MD) (spontaneous vaginal delivery) (Acute) 40 weeks gestation of (Acute) A:This is a 28 year-old, G [2], P [2001 PPD#2 s/p doing well. -Rh positive - -Infant for circ, will d/c home this afternoon if infant also cleared for discharge
[2019-11-28 08:27] VITALS: BP 114/72; PULSE 70; RESP 18; TEMP 36.2; O2SAT 95
[2019-11-28] MEDS: Senna/Docusate Sodium 1 Tablet PO (10:28)
[2019-11-28 11:23] VITALS: BP 121/71; PULSE 80; RESP 18; TEMP 36.2; O2SAT 98
[2019-11-28 12:05] VITALS: RESP 18
== END 2019-11-28 12:00 | disposition home or self-care (01) | DRG 807 ==
LOC: WP 15:38 → WPOUT 11-27 08:35
PROVIDERS: Admitting Provider Obstetrics & Gynecology; Referring Provider Obstetrics & Gynecology; Visit Provider Obstetrics & Gynecology
DX: O99.52 Diseases of the respiratory system complicating childbirth (principal); O69.81X0 Labor and delivery complicated by cord around neck, without compression, not applicable or unspecified; J45.909 Unspecified asthma, uncomplicated; Z3A.40 40 weeks gestation of pregnancy; Z37.0 Single live birth
CPT/HCPCS: 59050; 84112; 85025; 86850; 86900; 86901; 99218; J7120; A4216; G0378

== ENCOUNTER 2021-12-08 15:32 | Outpatient (CLI) | payer BC, SELFPAY ==
[2021-12-08 16:03] LABS: Absolute Neutrophil Count 6.5 X10^3/uL (2.0-7.7); Basophil# 0.04 X10^3/uL; Basophil% 0.5 % (0-1); Eosinophil# 0.12 X10^3/uL; Eosinophils% 1.4 % (0-5); Hematocrit 39.4 % (37-47); Hemoglobin 13.6 g/dL (12.0-15.0); Lymphocyte % 17.1 % (19-41); Mean Corp Hgb Conc 34.5 g/dL (32-36); Mean Corpuscular Hgb 29.2 pg (27.0-32.0); Mean Corpuscular Volume 84.7 fL (81-99); Mean Platelet Vol. 9.8 fl (6.2-12.0); Monocyte# 0.56 X10^3/uL; Monocyte% 6.4 % (0-10); NRBC Flagged by Analyzer 0 % (0-5); Neutrophil # 6.51 X10^3/uL (2.7-7.7); Neutrophil % 74.1 % (47-70); Platelet Count 371 K/mm3 (150-450); RBC Distribution Width CV 13.4 % (11.6-14.6); RBC Distribution Width SD 41.2 fl (35.1-43.9); Red Blood Count 4.65 M/mm3 (4.2-5.4); White Blood Count 8.8 K/mm3 (4.4-11.0)
[2021-12-08 16:22] LABS: Color, Urine Yellow (Yellow); Glucose, Dipstick Normal (Normal); Ketone-Dipstick Negative (Negative); Leukocyte Esterase-Dipstick 100 /ul (Negative); Nitrite-Dipstick Negative (Negative); Occult Blood-Urine 50 /ul (Negative); Protein-Dipstick 15 mg/dl (Negative); Specific Gravity, Urine 1.025 (1.002-1.030); Urine Bilirubin Dipstick Negative (Negative); Urine Clarity Sl. Cloudy (Clear); Urine Urobilinogen Normal (Normal)
[2021-12-08 16:25] LABS: Amphetamine Urine VISTA NEGATIVE (<1000 ng/mL); Barbiturate Urine VISTA NEGATIVE (< 200 ng/mL); Benzodiazepine Urine VISTA NEGATIVE (< 200 ng/mL); Cocaine Urine VISTA NEGATIVE (< 300 ng/mL); Ecstacy Urine VISTA NEGATIVE (< 500 ng/mL); Methadone Urine VISTA NEGATIVE (< 300 ng/mL); PCP Urine VISTA NEGATIVE (< 25 ng/mL); THC Urine VISTA NEGATIVE (< 50 ng/mL); Vista UDS pH Range 5
[2021-12-08 16:44] LABS: Thyroid Stim Hormone (TSH) 1.51 uIU/mL (0.358-3.74)
[2021-12-09 08:37] LABS: HIV - WCH Non-Reactive (Nonreactive); Hepatitis B Surface Antigen Non-Reactive (Nonreactive); Hepatitis C Antibody Non-Reactive (Nonreactive); Rubella IgG Reactive (Nonreactive); Syphilis Antibodies Non-reactive
[2021-12-10 21:07] LABS: Chlamydia By Nucleic Acid AMP Negative (Negative)
[2021-12-10 21:33] LABS: Gonococcus By Nucleic Acid AMP Negative (Negative)
[2021-12-15 13:42] LABS: HPV Reflexed? NOT INDICATED
== END 2021-12-08 23:59 | disposition home or self-care (01) ==
PROVIDERS: Visit Provider Obstetrics & Gynecology
DX: Z34.81 Encounter for supervision of other normal pregnancy, first trimester (principal)
CPT/HCPCS: 36415; 80307; 81002; 84443; 85025; 86703; 86762; 86780; 86803; 87086; 87088; 87340; 87491; 87591; 88175; G0145

== ENCOUNTER → 2022-04-06 | Outpatient (CLI) | payer BC, SELFPAY ==
[2022-04-06 11:14] LABS: Hematocrit 33.3 % (37-47); Hemoglobin 11.4 g/dL (12.0-15.0); Mean Corp Hgb Conc 34.2 g/dL (32-36); Mean Corpuscular Hgb 30.3 pg (27.0-32.0); Mean Corpuscular Volume 88.6 fL (81-99); Mean Platelet Vol. 10.9 fl (6.2-12.0); Platelet Count 253 K/mm3 (150-450); RBC Distribution Width CV 12.8 % (11.6-14.6); RBC Distribution Width SD 41.9 fl (35.1-43.9); Red Blood Count 3.76 M/mm3 (4.2-5.4); White Blood Count 10.6 K/mm3 (4.4-11.0)
[2022-04-06 11:46] LABS: Glucose Challenge Gest 1H 50g 91 mg/dL (70-140)
[2022-04-06 12:08] LABS: Syphilis Antibodies Non-reactive
== END | disposition home or self-care (01) ==
LOC: WOBLAB 10:15
PROVIDERS: Visit Provider Obstetrics & Gynecology
DX: Z34.83 Encounter for supervision of other normal pregnancy, third trimester (principal)
CPT/HCPCS: 36415; 82950; 85027; 86780

== ENCOUNTER → 2022-06-01 | Outpatient (CLI) | payer BC, SELFPAY | END | disposition home or self-care (01) | LOC: LABSPEC 15:52 | PROVIDERS: Visit Provider Obstetrics & Gynecology | DX: Z36.85 Encounter for antenatal screening for Streptococcus B (principal) | CPT/HCPCS: 87081 ==

== ENCOUNTER 2022-06-24 06:15 | Inpatient (IN) | payer BC, SELFPAY ==
[2022-06-24] VITALS (76 sets, daily range): BP systolic 112–135; BP diastolic 58–84; PULSE 65–175; RESP 18; TEMP 36.5–37.3; O2SAT 85–100; BMI 31.0
[2022-06-24] MEDS: Lactated Ringers 1,000 ML 50 ML IV (06:39)
[2022-06-24 06:52] LABS: Absolute Lymphocyte Count 2.21 X10^3/uL (0.83-4.51); Absolute Neutrophil Count 9.1 X10^3/uL (2.0-7.7); Basophil# 0.05 X10^3/uL; Basophil% 0.4 % (0-1); Eosinophil# 0.04 X10^3/uL; Eosinophils% 0.3 % (0-5); Hematocrit 37.1 % (37-47); Hemoglobin 11.8 g/dL (12.0-15.0); Lymphocyte # 2.21 X10^3/ul (0.83-4.51); Lymphocyte % 18.2 % (19-41); Mean Corp Hgb Conc 31.8 g/dL (32-36); Mean Corpuscular Hgb 26.3 pg (27.0-32.0); Mean Corpuscular Volume 82.8 fL (81-99); Mean Platelet Vol. 11.9 fl (6.2-12.0); Monocyte# 0.63 X10^3/uL; Monocyte% 5.2 % (0-10); NRBC Flagged by Analyzer 0 % (0-5); Neutrophil # 9.07 X10^3/uL (2.7-7.7); Platelet Count 189 K/mm3 (150-450); RBC Distribution Width CV 13.8 % (11.6-14.6); RBC Distribution Width SD 41.2 fl (35.1-43.9); Red Blood Count 4.48 M/mm3 (4.2-5.4); White Blood Count 12.1 K/mm3 (4.4-11.0)
--- NOTE | 2022-06-24 07:50 | PCM.HP.BLA ---
History and Physical Date of Admission: 06/24/22 Chief complaint: Contractions History present illness: 31-year-old at 40 weeks and 1 day with ROD 06/23/2022 arrives with contractions. Denies headache, vision change, chest pain, shortness of breath, nausea vomit, right upper quadrant pain. Patient states good movement. is complicated by hydronephrosis (right 19 mm left 7 mm) status post MFM and urology consult Obstetric history: G1: 40-week female 8 pounds 5 ounces G2: 40-week male 8 pounds 14 ounces G3: Current Past medical history: None Medications: vitamin Past surgical history: [place] tooth extraction Allergies: No known drug allergies Family history: Denies history DVT or PE Social history: Denies smoking, alcohol use, drug use Review of systems: Besides above pertinent positives a full review of systems was performed and found to be negative Physical exam: Vitals: Blood pressure 131/79 pulse 82 temp 97.7 Fahrenheit General: Normal-appearing no acute distress HEENT: Normocephalic/atraumatic no cervical lymphadenopathy Cardiac/respiratory: No use of accessory muscles, nonlabored breathing Abdomen: Soft, nontender, gravid Extremities: No peripheral edema normal peripheral pulses Psych: Normal affect normal demeanor nonpressured speech Labs: White blood cell count 12.1 hemoglobin 11.8 hematocrit 37.1% platelets 189. Blood type O+ antibody negative Assessment plan: 31-year-old at 40 weeks and 1 day in labor Admit labor and delivery See EFM GBS negative Routine orders Anesthesia see
--- NOTE | 2022-06-24 08:19 | PCM.PN.OB ---
Subjective Subjective Feels mild contractions Objective Data Objective Data Vital Signs: Vital Signs Temp Pulse BP Pulse Ox 97.7 F L 82 131/79 H 97 06/24/22 07:13 06/24/22 07:13 06/24/22 07:13 06/24/22 07:12 Weight: 222 lb 9.6 oz Body Mass Index (BMI) 31.0 Lab / Micro Data Result Diagrams: 06/24/22 06:40 Labs: Laboratory Results - last 24 hr 06/24/22 06:40: WBC 12.1 H, RBC 4.48, Hgb 11.8 L, Hct 37.1, MCV 82.8, MCH 26.3 L, MCHC 31.8 L, RDW Std Deviation 41.2, RDW Coeff of Margot 13.8, Plt Count 189, MPV 11.9, Immature Gran % (Auto) 0.900, Neut % (Auto) 75.0 H, Lymph % (Auto) 18.2 L, [place] % (Auto) 5.2, Eos % (Auto) 0.3, Baso % (Auto) 0.4, Absolute Neuts (auto) 9.1 H, Absolute Lymphs (auto) 2.21, Nucleated RBC % 0 06/24/22 06:40: Blood Type O POSITIVE, Antibody Screen NEGATIVE Micro: Microbiology 06/24/22 06:40 Nasal Secretion SARS-CoV-2 Antigen (Rapid) - Final Physical Exam Const alert, oriented x3, no apparent distress, average body habitus, healthy appearing and well nourished HEENT normocephalic and moist oral mucous membranes Eyes PERRL Neck full ROM Resp normal respiratory effort, no retractions and no use of accessory muscles Narrative: Cervical exam /-3. AROM clear fluid Extremity normal to inspection, full ROM and no clubbing, cyanosis or edema Neuro moves all extremities and no focal motor deficits Psych mental status grossly normal, affect normal, speech normal and activity/motor behavior normal Assessment & Plan (1) : PLAN: Patient seen and examined. AROM clear fluid. Continue current management
[2022-06-24] MEDS: Oxytocin 30 units/NS 500 ml 30 UNITS/500 ML IV.SOLN 334 UNITS IV (16:22)
[2022-06-24] MEDS: Methylergonovine 0.2 MG/ML Ampul IM (16:24)
--- NOTE | 2022-06-24 16:29 | EX.PCM.OBRPT ---
Vaginal Delivery Findings Description of Procedure: Normal spontaneous vaginal delivery of a viable male , vertex TONA. Head and shoulders delivered with ease. Cord cut clamped. Baby handed off to patient. Placenta delivered via cord traction and fundal massage. No lacerations noted. Prophylactic IM Methergine given for short second stage of labor. EBL 250 cc Apgars 8/9
[2022-06-24] MEDS: 0.9% Saline Lock 10 ML Syringe IV (18:59)
[2022-06-24] MEDS: Ibuprofen 600 MG Tablet PO (21:20)
[2022-06-25 00:30] VITALS: BP 116/73; PULSE 74; RESP 16; TEMP 36.6
[2022-06-25] MEDS: Acetaminophen 500 MG Tablet 1000 MG PO (02:22)
[2022-06-25 03:20] VITALS: BP 117/78; PULSE 70; RESP 16; TEMP 36.2
[2022-06-25 08:00] VITALS: BP 111/68; PULSE 70; RESP 16; TEMP 36.1; O2SAT 97
[2022-06-25] MEDS: Ibuprofen 600 MG Tablet PO (08:05)
--- NOTE | 2022-06-25 11:03 | DCINST_ITS ---
Discharge Instructions Diet Discharge Diet: No restrictions Activity Discharge Activity: Return to Normal Activity, May Drive and May Shower May resume sexual activity in: 4-6 weeks Weight Bearing Status: Weight bearing as tolerated Dressing / Incision Call your doctor if your incision/area has: Continuous Slow Oozing and Foul Smelling Discharge Call your doctor if you observe: Fever of 101 or Higher, Shortness of breath and Chest pain Follow Up Care Please Follow Up With: Edgardo Perez MD When: 4 to 6 weeks Test Results: Test results from this visit will be discussed in further detail at your follow- up appointment, if applicable. Discharge Plan Admission Admit Date/Time: 06/24/22 06:15 Attending Provider: Edgardo Perez Primary Care Provider: Care Physician,Aneta Primary Discharge Orders/Prescriptions Prescriptions: No Action Vitamin 1 EACH tablet 1 tab PO DAILY Referrals / Follow Up: Care Physician,No Primary [Primary Care Provider] - Disposition Discharge Orders: Discharge Patient (Routine); Ordered 06/25/22 Ordered By: Dr. Edgardo Perez
--- NOTE | 2022-06-25 11:04 | PCM.PN.OB ---
Subjective Subjective No overnight complaints Objective Data Objective Data Vital Signs: Vital Signs Temp Pulse Resp BP Pulse Ox O2 Del Method 96.9 F L 70 16 111/68 97 Room Air 06/25/22 08:00 06/25/22 08:00 06/25/22 08:00 06/25/22 08:00 06/25/22 08:00 06/25/22 08:00 Oxygen Delivery Method Room Air Weight: 222 lb 9.6 oz Body Mass Index (BMI) 31.0 Intake & Output: Intake and Output for Last 24 Hours 06/23/22 06/24/22 06/25/22 23:59 23:59 23:59 Intake Total 1430.83 / 1430.83 Output Total 1400 / 1400 Balance 30.83 / 30.83 Lab / Micro Data Result Diagrams: 06/24/22 06:40 Micro: Microbiology 06/24/22 06:40 Nasal Secretion SARS-CoV-2 Antigen (Rapid) - Final Physical Exam Const alert, oriented x3, no apparent distress, average body habitus, healthy appearing and well nourished HEENT normocephalic and moist oral mucous membranes Eyes PERRL Neck full ROM Resp normal respiratory effort, no retractions and no use of accessory muscles GI GI Narrative: Soft, nontender, uterus firm and below umbilicus Extremity normal to inspection, full ROM and no clubbing, cyanosis or edema Neuro moves all extremities, no focal motor deficits and no sensory deficits noted Psych mental status grossly normal, affect normal and speech normal Assessment & Plan (1) (spontaneous vaginal delivery): PLAN: day 1. Breast-feeding. Pain well controlled. 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
[2022-06-25 11:30] VITALS: BP 112/72; PULSE 72; RESP 16; TEMP 36.1
[2022-06-25 16:00] VITALS: BP 116/75; PULSE 72; RESP 16; TEMP 36.4
== END 2022-06-25 17:30 | disposition home or self-care (01) | DRG 807 ==
LOC: WPOUT 06:18 → WP 06:18
PROVIDERS: Admitting Provider Obstetrics & Gynecology; Referring Provider Obstetrics & Gynecology; Visit Provider Obstetrics & Gynecology
DX: O48.0 Post-term pregnancy (principal); Z37.0 Single live birth; Z20.822 Contact with and (suspected) exposure to COVID-19; Z3A.40 40 weeks gestation of pregnancy
CPT/HCPCS: 59025; 59050; 85025; 86850; 86900; 86901; 87426; 99218; J7120; A4216; G0378